=== PATIENT | female | born 1950 | race Caucasian/White ===

== ENCOUNTER → 2016-11-29 | Outpatient (CLI) | payer BC, MEDICARE | LOC: US 07:39 | DX: R94.5 Abnormal results of liver function studies (principal); R93.2 Abnormal findings on diagnostic imaging of liver and biliary tract; Z90.49 Acquired absence of other specified parts of digestive tract | CPT/HCPCS: 76705; 78306; A9503 ==

== ENCOUNTER → 2020-08-22 | Outpatient (CLI) | payer BC, MEDICARE, OTHER ==
[~2020-08-22] MED LIST: ALBUTEROL2.5 MG/3 M INH; NORVASC2.5 MG PO; OMNICEF 300 MG300 MG PO; PREDNISONE20 MG PO
== END ==
LOC: KOH-I 11:00
DX: Z12.2 Encounter for screening for malignant neoplasm of respiratory organs (principal); F17.210 Nicotine dependence, cigarettes, uncomplicated
CPT/HCPCS: 71271

== ENCOUNTER → 2020-09-08 | Outpatient (CLI) | payer BC, MEDICARE, OTHER | LOC: RAD 17:26 | DX: M25.572 Pain in left ankle and joints of left foot (principal) | CPT/HCPCS: 73610; 73630 ==

== ENCOUNTER → 2020-10-16 | Outpatient (CLI) | payer BC, MEDICARE, OTHER | LOC: RAD 17:21 | DX: M54.5 Low back pain (principal); M43.9 Deforming dorsopathy, unspecified | CPT/HCPCS: 72110 ==

== ENCOUNTER 2020-10-24 10:20 | Emergency (ER) | payer BC | END 2020-10-24 13:52 | disposition home or self-care (01) | LOC: ER1 10:20 | DX: M71.22 Synovial cyst of popliteal space [Baker], left knee (principal); I10 Essential (primary) hypertension; E78.5 Hyperlipidemia, unspecified; Z85.3 Personal history of malignant neoplasm of breast; Z90.89 Acquired absence of other organs; Z90.49 Acquired absence of other specified parts of digestive tract; Z79.899 Other long term (current) drug therapy; F17.210 Nicotine dependence, cigarettes, uncomplicated | CPT/HCPCS: 73564; 93971; 96372; 99284; J1885 ==

== ENCOUNTER → 2020-11-11 | Outpatient (CLI) | payer BC | LOC: EXRD 13:50 | DX: R79.89 Other specified abnormal findings of blood chemistry (principal); I99.8 Other disorder of circulatory system; N26.1 Atrophy of kidney (terminal) | CPT/HCPCS: 76775; 93925 ==

== ENCOUNTER → 2021-05-01 | Outpatient (CLI) | payer BC | LOC: GENOP 17:53 | DX: R05.9 Cough, unspecified (principal); K59.00 Constipation, unspecified; R91.8 Other nonspecific abnormal finding of lung field | CPT/HCPCS: 71046 ==

== ENCOUNTER → 2021-08-11 | Outpatient (CLI) | payer BC, MEDICARE | LOC: KOH-I 08:41 | DX: E05.90 Thyrotoxicosis, unspecified without thyrotoxic crisis or storm (principal); R10.9 Unspecified abdominal pain; E04.2 Nontoxic multinodular goiter; K76.0 Fatty (change of) liver, not elsewhere classified; N27.0 Small kidney, unilateral | CPT/HCPCS: 76536; 76700 ==

== ENCOUNTER → 2021-08-26 | Outpatient (CLI) | payer BC, MEDICARE | LOC: KOH-I 14:24 | DX: F17.210 Nicotine dependence, cigarettes, uncomplicated (principal); R91.8 Other nonspecific abnormal finding of lung field | CPT/HCPCS: 71271 ==

== ENCOUNTER → 2021-12-01 | Outpatient (CLI) | payer BC, MEDICARE | LOC: CT 08:17 | DX: R10.9 Unspecified abdominal pain (principal); Z01.812 Encounter for preprocedural laboratory examination; N20.0 Calculus of kidney | CPT/HCPCS: 36415; 82565; 84520; Q9967 ==